=== PATIENT | female | born 1935 | race Caucasian/White ===

== ENCOUNTER 2018-04-23 07:42 | Outpatient (CLI) | payer MEDICARE, BC ==
--- NOTE | 2018-04-24 18:19 | CT Report ---
Reason: ESSENTIAL HYPERTENSION Procedure Date: 04/23/2018 Accession Number: [id number] / [id number] Procedure: CT - Head W/O CPT Code: FULL RESULT: EXAM: CT HEAD EXAM DATE: 04/23/2018 11:36 AM. CLINICAL HISTORY: ESSENTIAL HYPERTENSION. COMPARISON: None. TECHNIQUE: Multiaxial CT images were obtained from the foramen magnum to the vertex. Reformats: Sagittal and coronal. IV contrast: None. In accordance with CT protocol optimization, one or more of the following dose reduction techniques were utilized for this exam: automated exposure control, adjustment of mA and/or KV based on patient size, or use of iterative reconstructive technique. FINDINGS: Parenchyma: No intraparenchymal hemorrhage. No evidence of mass, midline shift or CT findings of acute infarction. Ayoub-white differentiation is distinct. Diffuse moderate chronic microangiopathic white matter changes are evident. Extraaxial Spaces: Normal for age. No subdural or epidural collections identified. Ventricles: The ventricles and cortical sulci are enlarged, consistent with age-related tissue loss. Sinuses: Imaged paranasal sinuses, orbits, and mastoids show no significant abnormality with incidental tiny left maxillary sinus mucus retention cyst. Bones: No evidence of fracture or calvarial defect. Other: None. IMPRESSION: Moderate senescent changes without evidence of acute intracranial abnormality. RADIA
== END 2018-04-23 07:43 | disposition home or self-care (01) ==
LOC: DI 07:42
PROVIDERS: ATTEND Family Medicine
DX: I10 Essential (primary) hypertension (principal); R41.3 Other amnesia
CPT/HCPCS: 70450

== ENCOUNTER 2020-05-07 17:47 | Outpatient (CLI) | payer MEDICARE, BC | END 2020-05-07 17:48 | disposition critical access hospital (66) | LOC: EMS 17:47 | PROVIDERS: ATTEND Emergency Medicine | DX: R41.82 Altered mental status, unspecified (principal) | CPT/HCPCS: A0425; A0429 ==

== ENCOUNTER 2020-05-07 18:13 | Inpatient (IN) | payer MEDICARE, BC ==
--- NOTE | 2020-05-07 18:37 | ED Physician Documentation ---
PD HPI ALTERED MENTAL STATUS - Stated complaint Stated Complaint: AMS - Chief complaint Chief Complaint: Neuro - History obtained from History obtained from: Patient, EMS, Caregiver - History of Present Illness Quality / character: Confused, Disoriented Contributing factors: Known dementia Basline status: Ambulatory, Independent Similar symptoms before: Has not had sx before - Additional information Additional information: Patient is an 84-year-old female with a history of dementia. Has caregivers throughout the day. Usually walks in her yard. Caregiver states that it is normal for her to be very can used, but today noted that she was misusing words and having difficulty getting the words out. She states that the speech was incoherent. Unclear when her last known normal was, potentially between 230 and 330. She was seen on a camera at about 330, she did not recognize her home, caregiver states that this is normal for the patient. Patient was found wandering on the side of the road today by police and brought here for evaluation. Review of Systems Unable to obtain: Dementia PD PAST MEDICAL HISTORY - Past Medical History Past Medical History: Yes Neuro: Dementia - Allergies Allergies/Adverse Reactions: Allergies Allergy/AdvReac Type Severity Reaction Status Date / Time No Known Drug Allergies Allergy Verified 05/07/20 18:23 PD ED PE NORMAL - Vitals Vital signs reviewed: Yes - General General: No acute distress, Well developed/nourished, Other (pleasant, not oriented to place or time.) - HEENT HEENT: Atraumatic, PERRL, Ears normal, Moist mucous membranes, Pharynx benign - Neck Neck: Supple, no meningeal sign, No bony TTP - Cardiac Cardiac: RRR - Respiratory Respiratory: No respiratory distress, Clear bilaterally - Abdomen Abdomen: Soft, Non tender, Non distended - Back Back: No spinal TTP - Derm Derm: Warm and dry, No rash - Extremities Extremities: Normal ROM s pain, No edema, No calf tenderness / cord - Neuro Neuro: manager cost 2-12 intact, No motor deficit, No sensory deficit - Psych Psych: Normal mood NIHSS - Time Time: 18:30 - Level of Consciousness Level of consciousness: (0) Alert, Keenly responsive LOC Questions: (1) Answers one Q correctly LOC Commands: (0) Performs both correctly - Gaze Best Gaze: (0) Normal - Visual Visual: (0) No loss - Facial Palsy Facial Palsy: (0) Normal, symmetrical movement - Motor Arms (both separate) Motor Arm (right): (0) No drift Motor Arm (left): (0) No drift - Motor Legs (both separate) Motor Leg (right): (0) No drift Motor Leg (left): (0) No drift - Limb Ataxia Limb Ataxia: (0) Absent - Sensory Sensory: (0) Normal - Best Language Best Language: (1) [id number] - Dysarthria Dysarthria: (0) Normal - Extinction and Inattention (formally neg Extinction and inattention: (0) No abnormality - Total Score/Results Total Score/Result: 2 Results - Vitals Vitals: Vital Signs - 24 hr 05/07/20 05/07/20 05/07/20 18:23 18:34 19:04 Temperature 36.5 C 36.5 C Heart Rate 73 73 72 Respiratory 14 14 21 Rate Blood Pressure 133/99 H 133/99 H 130/90 H O2 Saturation 99 99 100 05/07/20 05/07/20 19:30 20:00 Temperature 36.5 C Heart Rate 72 73 Respiratory 18 16 Rate Blood Pressure 140/80 H 153/71 H O2 Saturation 100 100 Oxygen O2 Source Room air - Labs Labs: Laboratory Tests 05/07/20 05/07/20 05/07/20 18:53 18:53 18:53 WBC 14.0 H RBC 4.39 Hgb 13.2 Hct 39.9 MCV 90.9 MCH 30.1 MCHC 33.1 RDW 13.9 Plt Count 341 MPV 9.1 Neut # (Auto) 11.0 H Lymph # (Auto) 2.0 Dewey # (Auto) 0.7 Eos # (Auto) 0.0 Baso # (Auto) 0.1 Absolute Nucleated RBC 0.00 Nucleated RBC % 0.0 PT 12.0 INR 1.1 APTT 25.6 Sodium 135 Potassium 3.5 Chloride 97 L Carbon Dioxide 23 Anion Gap 15.0 H BUN 15 Creatinine 0.7 Estimated GFR (MDRD) 80 L Glucose 120 H Calcium 10.0 Total Bilirubin 0.8 AST 125 H ALT 31 Alkaline Phosphatase 70 Total Creatine Kinase Troponin I High Sens Total Protein 7.3 Albumin 4.3 Globulin 3.0 Albumin/Globulin Ratio 1.4 TSH Urine Color Urine Clarity Urine pH Ur Specific [place] Urine Protein Urine Glucose (UA) Urine Ketones Urine Occult Blood Urine Nitrite Urine Bilirubin Urine Urobilinogen Ur Leukocyte Esterase Urine RBC Urine WBC Ur Squamous Epith Cells Urine Bacteria Urine Culture Comments Nasal Adenovirus (PCR) Nasal B. parapertussis DNA (PCR) Nasal Coronavir 229E PCR Nasal Coronavir HKU1 PCR Nasal Coronavir NL63 PCR Nasal Coronavir OC43 PCR Nasal Enterovir/Rhinovir PCR Nasal Influenza B PCR Nasal Influenza A PCR Nasal Parainfluen 1 PCR Nasal Parainfluen 2 PCR Nasal Parainfluen 3 PCR Nasal Parainfluen 4 PCR Nasal RSV (PCR) Nasal B.pertussis DNA PCR Nasal C.pneumoniae (PCR) Daniel Human Metapneumo PCR Nasal M.pneumoniae (PCR) Nasal SARS-CoV-2 (PCR) 05/07/20 05/07/20 05/07/20 18:53 18:53 18:53 WBC RBC Hgb Hct MCV MCH MCHC RDW Plt Count MPV Neut # (Auto) Lymph # (Auto) Dewey # (Auto) Eos # (Auto) Baso # (Auto) Absolute Nucleated RBC Nucleated RBC % PT INR APTT Sodium Potassium Chloride Carbon Dioxide Anion Gap BUN Creatinine Estimated GFR (MDRD) Glucose Calcium Total Bilirubin AST ALT Alkaline Phosphatase Total Creatine Kinase 1041 H* Troponin I High Sens 32707.0 H* Total Protein Albumin Globulin Albumin/Globulin Ratio TSH 6.88 H Urine Color Urine Clarity Urine pH Ur Specific [place] Urine Protein Urine Glucose (UA) Urine Ketones Urine Occult Blood Urine Nitrite Urine Bilirubin Urine Urobilinogen Ur Leukocyte Esterase Urine RBC Urine WBC Ur Squamous Epith Cells Urine Bacteria Urine Culture Comments Nasal Adenovirus (PCR) Nasal B. parapertussis DNA (PCR) Nasal Coronavir 229E PCR Nasal Coronavir HKU1 PCR Nasal Coronavir NL63 PCR Nasal Coronavir OC43 PCR Nasal Enterovir/Rhinovir PCR Nasal Influenza B PCR Nasal Influenza A PCR Nasal Parainfluen 1 PCR Nasal Parainfluen 2 PCR Nasal Parainfluen 3 PCR Nasal Parainfluen 4 PCR Nasal RSV (PCR) Nasal B.pertussis DNA PCR Nasal C.pneumoniae (PCR) Daniel Human Metapneumo PCR Nasal M.pneumoniae (PCR) Nasal SARS-CoV-2 (PCR) 05/07/20 05/07/20 19:18 19:28 WBC RBC Hgb Hct MCV MCH MCHC RDW Plt Count MPV Neut # (Auto) Lymph # (Auto) Dewey # (Auto) Eos # (Auto) Baso # (Auto) Absolute Nucleated RBC Nucleated RBC % PT INR APTT Sodium Potassium Chloride Carbon Dioxide Anion Gap BUN Creatinine Estimated GFR (MDRD) Glucose Calcium Total Bilirubin AST ALT Alkaline Phosphatase Total Creatine Kinase Troponin I High Sens Total Protein Albumin Globulin Albumin/Globulin Ratio TSH Urine Color YELLOW Urine Clarity CLEAR Urine pH 7.5 Ur Specific [place] 1.020 Urine Protein NEGATIVE Urine Glucose (UA) NEGATIVE Urine Ketones NEGATIVE Urine Occult Blood NEGATIVE Urine Nitrite POSITIVE H Urine Bilirubin NEGATIVE Urine Urobilinogen 0.2 (NORMAL) Ur Leukocyte Esterase SMALL H Urine RBC 0-5 Urine WBC 6-10 H Ur Squamous Epith Cells FEW Squamous Urine Bacteria Moderate H Urine Culture Comments INDICATED Nasal Adenovirus (PCR) NOT DETECTED Nasal B. parapertussis DNA (PCR) NOT DETECTED Nasal Coronavir 229E PCR NOT DETECTED Nasal Coronavir HKU1 PCR NOT DETECTED Nasal Coronavir NL63 PCR NOT DETECTED Nasal Coronavir OC43 PCR NOT DETECTED Nasal Enterovir/Rhinovir PCR NOT DETECTED Nasal Influenza B PCR NOT DETECTED Nasal Influenza A PCR NOT DETECTED Nasal Parainfluen 1 PCR NOT DETECTED Nasal Parainfluen 2 PCR NOT DETECTED Nasal Parainfluen 3 PCR NOT DETECTED Nasal Parainfluen 4 PCR NOT DETECTED Nasal RSV (PCR) NOT DETECTED Nasal B.pertussis DNA PCR NOT DETECTED Nasal C.pneumoniae (PCR) NOT DETECTED Daniel Human Metapneumo PCR NOT DETECTED Nasal M.pneumoniae (PCR) NOT DETECTED Nasal SARS-CoV-2 (PCR) NOT DETECTED - Rads (name of study) head CT Radiology: Prelim report reviewed, EMP read contemporaneously, See rad report (no acute abnormality.) PD MEDICAL DECISION MAKING - ED course Complexity details: reviewed results, re-evaluated patient, considered differential, d/w patient, d/w men's custom hair piece consultant ED course: 84-year-old female presents to the emergency department with TIA symptoms tonight. Neurological deficits fully resolved when she returned from CT scan. No acute laboratory abnormalities. Patient is well-appearing, nontoxic. Discussed the case with Dr. Rush, hospitalist who accepts. No indication for TPA. This document was made in part using voice recognition software. While efforts are made to proofread this document, sound alike and grammatical errors may occur. CT angiogram head and neck were also ordered, these will be followed up by the hospitalist. Departure - Departure Disposition: ED Place in Observation Clinical Impression: TIA (transient ischemic attack) Condition: Stable Discharge Date/Time: 05/07/20 20:57
[2020-05-07] MEDS ORDERED: IOVERSOL 320 100 ML VIAL IVP ONE ×3 (18:39→21:00)
[2020-05-07 19:00] LABS: BASOPHILS # (AUTO) 0.1 10^3/uL (0.0-0.1); BASOPHILS % (AUTO) 0.7 %; EOSINOPHILS % (AUTO) 0.3 %; HGB - HEMOGLOBIN 13.2 g/dL (12.0-16.0); LYMPHOCYTES % (AUTO) 14.5 %; MEAN CORPUSCULAR HEMOGLOBIN 30.1 pg (27.0-31.0); MEAN CORPUSCULAR HGB CONC 33.1 g/dL (32.0-36.0); MEAN CORPUSCULAR VOLUME 90.9 fL (81.0-99.0); MEAN PLATELET VOLUME 9.1 fL (7.9-10.8); MONOCYTES # (AUTO) 0.7 10^3/uL (0.0-1.0); MONOCYTES % (AUTO) 5.2 %; NEUTROPHILS % (AUTO) 78.7 %; PLT - PLATELET COUNT 341 10^3/uL (130-450); RED BLOOD COUNT 4.39 10^6/uL (4.20-5.40); RED CELL DISTRIBUTION WIDTH 13.9 % (12.0-15.0)
[2020-05-07 19:05] LABS: INR 1.1 (0.8-1.2)
--- NOTE | 2020-05-07 19:07 | CT Report ---
PROCEDURE: Head W/O Stroke Protocol INDICATIONS: word salad, confusion TECHNIQUE: Noncontrast 4.5 mm thick angled axial sections acquired from the foramen magnum to the vertex, with c oronal reformats. For radiation dose reduction, the following was used: automated exposure control, adjustment of mA and/or kV according to patient size. COMPARISON: FINDINGS: No acute intracranial hemorrhage, abnormal extra axial fluid collection, mass effect, or midline shif t. The ventricular system and basilar cisterns are patent. Ayoub-white matter differentiation is maint ained, without CT evidence of acute large territory infarct. No gross orbital abnormality. Paranasal sinuses and mastoid air cells are clear. IMPRESSION: No CT evidence of acute intracranial hemorrhage or acute infarct. Findings were discusse d with Dr. Carrington at 6:00 PM [facility] on 05/07/2020. This study fulfills neurological imaging criteria for inclusion or exclusion of acute stroke therapie s based on available published neurological imaging guidelines. Reviewed by: Lon Parsons MD on 05/07/2020 6:06 PM [facility] Approved by: Lon Parsons MD on 05/07/2020 6:06 PM [facility] Station ID: [id number]
[2020-05-07 19:12] LABS: ALBUMIN 4.3 g/dL (3.2-5.5); ALBUMIN/GLOBULIN RATIO 1.4 (1.0-2.2); BILIRUBIN,TOTAL 0.8 mg/dL (0.2-1.0); CREATININE 0.7 mg/dL (0.4-1.0); PARTIAL THROMBOPLASTIN TIME 25.6 secs (24.9-33.3); TOTAL PROTEIN 7.3 g/dL (6.7-8.2)
[2020-05-07 19:24] LABS: BILIRUBIN,URINE NEGATIVE (NEGATIVE); GLUCOSE, URINE (UA) NEGATIVE (NEGATIVE); KETONES,URINE (UA) NEGATIVE (NEGATIVE); LEUKOCYTE ESTERASE, URINE SMALL (NEGATIVE); NITRITE,URINE POSITIVE (NEGATIVE); OCCULT BLOOD,URINE NEGATIVE (NEGATIVE); PH,URINE 7.5 PH (5.0-7.5); PROTEIN,URINE NEGATIVE (NEGATIVE); UROBILINOGEN,URINE 0.2 (NORMAL) E.U./dL (NORMAL)
[2020-05-07 19:25] LABS: CLARITY,URINE CLEAR (CLEAR)
[2020-05-07 19:30] LABS: RBC,URINE 0-5 /HPF (0-5); SQUAMOUS EPITHELIAL CELL,UR FEW Squamous (<= Few)
[2020-05-07 19:31] LABS: BACTERIA,URINE Moderate /HPF (None Seen)
--- NOTE | 2020-05-07 20:08 | CT Report ---
PROCEDURE: ANGIO NECK W INDICATIONS: Signs and symptoms of stroke; word salad CONTRAST: IV CONTRAST: Optiray 320 ml: 100 PO CONTRAST: *NO PO CONTRAST TECHNIQUE: After the administration of intravenous contrast, 1.5 mm axial sections acquired from the aortic arch to the [place] of [place]. Coronal 3-D maximum intensity projection (MIP) and/or volume rendering ref ormats were then performed. For radiation dose reduction, the following was used: automated exposur e control, adjustment of mA and/or kV according to patient size. COMPARISON: None. FINDINGS: Standard three-vessel aortic arch anatomy. Atherosclerotic calcifications in the aortic arch. Soft pl aque in the arch branch vessel origins without immediately significant stenosis. The bilateral common carotid arteries are widely patent. There is atherosclerotic plaque and calcific ation at the carotid bifurcations bilaterally, right greater than left. This produces no hemodynamica lly significant narrowing, approximately 20% on the right and no greater than 10% on the left. The re mainder of the extracranial internal carotid arteries appear widely patent. There are atherosclerotic calcifications in the carotid siphons bilaterally without hematoma hematemesis significant stenosis in these carotid segments. The right vertebral artery is very mildly hypoplastic and appears to terminate in PICA, contributing very little if any flow to the basilar artery. The cervical segments of the vertebral arteries as wel l as the V4 segments appear widely patent. The basilar artery is also patent and unremarkable. IMPRESSION: No hemodynamically significant stenosis of the major extra-cranial arterial circulation. Atherosclerotic disease of the aorta extending into the arch branch vessels and at the carotid bifurc ations without flow limiting stenosis. Mildly hypoplastic right vertebral artery which appears to terminate in PICA and appears to demonstra te little or no flow contribution to the basilar artery. The estimate of stenosis included in the report of the imaging study was calculated using the NASCET method Reviewed by: Lon Parsons MD on 05/07/2020 7:07 PM [facility] Approved by: Lon Parsons MD on 05/07/2020 7:07 PM [facility] Station ID: [id number]
--- NOTE | 2020-05-07 20:20 | CT Report ---
PROCEDURE: ANGIO HEAD W/WO INDICATIONS: word salad CONTRAST: IV CONTRAST: Optiray 320 ml: 100 PO CONTRAST: *NO PO CONTRAST TECHNIQUE: Postcontrast 4.5 mm thick sections then re-acquired from the foramen magnum to the vertex. 3-dimensi onal cnkwazu-kvonuctpn-kxkcggchvi (MIP) and/or volume rendering reformats were acquired of the centra l intracranial vasculature. For radiation dose reduction, the following was used: automated exposur e control, adjustment of mA and/or kV according to patient size. COMPARISON: CT of the head without contrast today FINDINGS: Image quality: Excellent. Anterior circulation: Intracranial internal carotid arteries have atherosclerotic calcifications but are normal in size and flow. The flow within the paired anterior cerebral arteries is normal and sy mmetric. The flow within the middle cerebral arteries is normal and symmetric. The anterior communi cating artery is seen. No aneurysms are seen. Posterior circulation: The left vertebral artery is dominant. The right TEST GRADER has a origin from t he anterior circulation. The right vertebral artery is hypoplastic. Flow within the posterior cerebra l arteries is normal and symmetric. No aneurysms are seen. CSF spaces: Ventricles are normal in size and shape. Basal cisterns are patent. No extra-axial flu id collections. Brain: No midline shift. No intracranial bleeds or masses. Subcortical and periventricular hypoden sities are consistent with microvascular ischemic disease. Ayoub-white matter interface appears intact . Skull and face: Calvarium and facial bones appear intact, without suspicious lesions. Sinuses: Visualized sinuses and mastoids are clear. IMPRESSION: 1. No acute intracranial abnormality. 2. Normal CTA of the head. Reviewed by: John Witt on 05/07/2020 8:19 PM PST Approved by: John Witt on 05/07/2020 8:19 PM PST Station ID: [id number]
[2020-05-07 20:24] LABS: C. PNEUMONIAE- RESP PCR PANEL NOT DETECTED
[2020-05-07] MEDS ORDERED: SODIUM CHLORIDE FLUSH 0.9% 10 ML SYRINGE IVP PRN (20:25)
[2020-05-07] MEDS ORDERED: ACETAMINOPHEN 325 MG TABLET PO PRN (20:25)
[2020-05-07] MEDS ORDERED: ONDANSETRON 4 MG/2 ML VIAL IVP PRN (20:25)
[2020-05-07] MEDS ORDERED: ASPIRIN CHEW 81 MG TABLET PO STA (20:32)
--- NOTE | 2020-05-07 20:33 | HISTORY & PHYSICAL EXAMINATION ---
Chief Complaint - Chief Complaint Chief Complaint: Chills History of Present Illness - Admitted From Admitted From:: Home - History Obtained From Records Reviewed: Yes History obtained from: Patient, Caregiver, ER Physician, EMR Exam Limitations: Patient has advanced dementia and is a poor historian. - History of Present Illness HPI Comment/Other: This is a very pleasant 84-year-old female with a past medical history signi ficant for advanced dementia and hypertension. She was brought to the emergency department today by her caregiver after it was noted that she had slurred/garbled speech this afternoon along with diaphoresis. The history is obtained from the patient's caregiver at bedside as the patient has dementia and is unable to recall what happened. The caregiver at bedside tells me that she was with the patient today from 12:30pm to 2:30pm and she was in her usual state of health. She left the patient at that time and the patient's son noticed on the cameras he has installed at the patient's house that she walked out about a half an hour later. She did not return within 30 minutes and so neighbors and another caregiver were contacted to find the patient. [place] it was noted that she was diaphoretic and appeared quite pale. She also had slurred and garbled speech. She was also reportedly incontinent of stool. Given these symptoms, she was brought to the emergency department. Upon initial arrival to the emergency department, her speech was noted to be more of a word salad rather than slurred her speech. This was still unusual for the patient. Throughout her stay in the emergency department, her symptoms completely resolved. The patient reports no headache, change in vision, focal deficits, numbness, tingling. She only complains of vague chills and feeling cold. She does point to her upper abdomen when she complains of chills. She also complains of slight left knee pain although she does not recall any trauma. She denies any dysuria, urgency. Her caregiver did make note of increased frequency. In the emergency department, she was noted to be afebrile and hemodynamically stable. Labs were significant for a white count of 14,000. AST was elevated in the 130s. Her urinalysis did reveal pyuria, bacteriuria, leukocyte esterase, and nitrites. CT the head was unremarkable. She underwent CTA of the head and neck which showed no significant stenosis. Given the above findings, medicine was consulted for admission. I did discuss goals of care with the patient and she states that she does not want to and would like to be a full code. She also gave me permission to speak with her son regarding her CODE STATUS. I did speak with the patient's son and he states that she is a DNR and has made it clear in the past that she does not want aggressive measures. History - Past Medical History Cardiovascular: reports: Hypertension Neuro: reports: Dementia MRSA Hx?: No - Past Surgical History General: reports: Appendectomy - Family & Social History Family History Comment/Other: She reports no significant family history although she is an unreliable historian due to her dementia. Living arrangement: At home Living Situation: Alone Social History Notes: She lives at home alone. She has 2-3 caregivers who check on her each day for about 4 hours a day. She has had dementia for about the past 9 months. She is a non-smoker and does not drink alcohol. Meds/Allgy - Allergies Allergies/Adverse Reactions: Allergies Allergy/AdvReac Type Severity Reaction Status Date / Time No Known Drug Allergies Allergy Verified 05/07/20 18:23 Review of Systems - Constitutional Constitutional: reports: Chills. denies: Fatigue, Fever - Eyes Eyes: denies: Blurred vision, Vision loss - Ears, Nose & Throat Ears, Nose & Throat: denies: Nasal discharge, Nasal congestion, Sore throat - Cardiovascular Cariovascular: denies: Chest pain, Edema, Lightheadedness, Exertional dyspnea, Decr. exercise tolerance - Respiratory Respiratory: denies: Cough, SOB at rest, SOB with exertion - Gastrointestinal Gastrointestinal: denies: Abdominal pain, Constipation, Diarrhea, Nausea, Vomiting - Genitourinary Genitourinary: denies: Dysuria, Frequency, Urgency, Hematuria - Musculoskeletal Musculoskeletal: reports: Joint pain. denies: Muscle pain, Back pain, Muscle aches - Neurological Neurological: denies: General weakness, Focal weakness, Headache, Dizziness, Numbness Prior Level of Functionality: She has advanced dementia at baseline but she is ambulatory. She has 2-3 caregivers who check on her throughout the day up to 4 hours each day. Exam - Vital Signs Reviewed Vital Signs: Yes Vital Signs: Vital Signs x48h Temp Pulse Resp BP Pulse Ox 05/07/20 20:00 73 16 153/71 H 100 02/08/21 19:30 36.5 C 72 18 140/80 H 100 05/07/20 19:04 72 21 130/90 H 100 05/07/20 18:34 36.5 C 73 14 133/99 H 99 05/07/20 18:23 36.5 C 73 14 133/99 H 99 - Physical Exam General Appearance: positive: No acute distress, Alert Eyes Bilateral: positive: Normal inspection, EOMI, Conjunctivae nml ENT: positive: ENT inspection nml Neck: positive: Nml inspection Respiratory: positive: No respiratory distress. negative: Wheezes, Rales Cardiovascular: positive: Regular rate & rhythm, No murmur. negative: Tachycardia Abdomen: positive: Non-tender, No distention. negative: Tenderness, Guarding, Rebound Skin: positive: Warm, Dry Conclusion/Plan - Problem List (1) TIA (transient ischemic attack) Conclusion/Plan: Her presentation is concerning for TIA given the slurred speech/word salad. She also did reportedly have diaphoresis and nausea with this episode. At this point in time, her symptoms have resolved and her CT the head is unremarkable. Her CTA of the head and neck did not reveal any significant stenoses. We will give her aspirin 325 mg now. We will start her on aspirin 81 mg in the morning. We will look to start her on a statin this evening if her CK's are normal. Check MRI in the morning. Obtain echocardiogram. Monitor on telemetry. Check A1c and lipid panel. Given the history of diaphoresis and nausea, will check orthostatics as well to rule out any other possible etiologies of her presentation. Will also check a troponin and EKG. (2) Dementia Conclusion/Plan: She is back to her baseline at this time. She is only oriented to self and location. Her caregiver is at bedside and states this is her baseline. We will consult social work to assist with disposition planning as the patient would benefit from 20/10 caregivers. (3) Asymptomatic bacteriuria Conclusion/Plan: Although her urinalysis is suggestive of infection, the patient has no symptoms and so this is likely asymptomatic bacteriuria. We will hold off on antibiotics for the time being unless the patient develops symptoms, fever, or worsening white white count. (4) Hypertension Conclusion/Plan: Her blood pressure is currently stable in the 130s to 140 systolic. She is on hydrochlorothiazide at home. We will hold this overnight to allow for permissive hypertension in case this was a stroke. We will look to resume this tomorrow. (5) Elevated AST (SGOT) Conclusion/Plan: Her AST is elevated and otherwise her LFTs are normal. Given this elevation, will check CKs to evaluate for rhabdomyolysis. If her CKs are elevated then we will start her on IV fluids and hold statin. - Lab Results Lab results reviewed: Yes Harrison Bones: 05/07/20 18:53 05/07/20 18:53 - Diagnostic Imaging Results Diagnostic Imaging Results: positive: Final report reviewed Core Measures - Anticipated LOS I expect patient to be DC'd or transferred within 96 hours.: Yes - Issues Hospital Issues and Management Plan: 84-year-old female with advanced dementia who presents with an episode of slurred speech concerning for TIA. We will place in observation for further work-up including MRI, echo, telemetry. - DVT/VTE - Prophylaxis VTE/DVT Device ordered at admit?: Yes VTE/DVT Prophylaxis med ordered at admit?: Yes
[2020-05-07] MEDS ORDERED: LACTATED RINGERS 1,000 ML IV SCH (21:00)
[2020-05-07] MEDS ORDERED: ATORVASTATIN 10 MG TABLET PO SCH (21:00)
--- NOTE | 2020-05-07 21:06 | XRAY Report ---
PROCEDURE: Knee 2 View LT INDICATIONS: Knee pain and tenderness. TECHNIQUE: 2 views of the left knee(s) were acquired. COMPARISON: None. FINDINGS: Bones: There is medial joint space narrowing and tricompartmental osteophytes consistent with osteoar thritis. Calcifications in the lateral joint space are consistent with under calcinosis. Soft tissues: No joint effusion. No suspicious soft tissue calcifications. Vasculature has atheros clerotic calcifications. IMPRESSION: 1. Tricompartmental degenerative changes and medial joint space narrowing consistent with osteoarthri tis. 2. Chondrocalcinosis. Reviewed by: John Witt on 05/07/2020 9:04 PM PST Approved by: John Witt on 05/07/2020 9:04 PM PST Station ID: [id number]
[2020-05-07] MEDS ORDERED: CLOPIDOGREL 300 MG TABLET PO ONE (21:59)
[2020-05-07] MEDS ORDERED: HEPARIN 25000UNITS/500ML (D5W) 25,000 UNIT/500 ML BAG IV SCH (22:00)
--- NOTE | 2020-05-07 22:19 | ADVANCE CARE PLANNING NOTE ---
Advance Care Planning - Planning Encounter Date: 05/07/20 Time: 21:15 Purpose: To clarify goals of care. Parties in Attendance: The patient's son and POAMauri. One of the patient's caregivers, Divine. Decisional Capacity of the Patient: She has advanced dementia and is not able to make her own medical decisions. Her POA is her son, Mauri. - Diagnosis for Encounter (1) NSTEMI (non-ST elevated myocardial infarction) Summary: She presented with slurred speech/word salad and concerns for TIA. Work-up then revealed an elevated CK as well as an elevated troponin of 12,000. This was concerning for an NSTEMI given her presentation also included nausea and diaphoresis. Her EKG does reveal sinus rhythm with T wave inversions and slight ST depressions in V4 to V6. She has been given aspirin, Plavix and started on a heparin drip. (2) Dementia Summary: The patient has had dementia for the past 9 months with progressive decline. She is normally oriented to self and location at baseline. She will also know her son and some of her other for members. She does not know the name of her caregiver but will recognize her by face. - Encounter Subjective/Patient's Story: This is obtained from the patient's son and caregiver as the patient has dementia and is unable to provide a history. They state that the patient has been living alone now for about 30 years. She has been independent up until today from a physical standpoint. She ambulates on her own without any use of a walker or cane. She has not been driving for the past year and has had a cognitive decline over the past 9 months consistent with dementia. They states that she has her good days and bad days but for the most part, she is pleasantly confused at baseline. She does have 2-3 caregivers throughout the day but they do not stay longer for more than 4 hours at most. The patient prefers to be at home alone and has on occasion asked the caregivers to leave early. Mauri tells me that they did consider assisted living at the end of February but given the concerns for Covid and that she would be locked up in her tiny little space that she would become depressed and would not do well overall. He is now open to the idea of 24/7 caregivers or even memory care. His concern in the past has been that his mother has declined caregivers and that she would prefer to stay home as this is where she has lived for the past 30 years. She will go out for walks on her own at times but she returns home. He does have cameras installed around her house that he is aware whenever she leaves. Objective/Medical Story: She now presents with slurred speech/word salad after an episode of nausea and diaphoresis this afternoon. Initial concern was for TIA. CT the head was unremarkable as well as a CTA of the head and neck. Given her elevated AST with otherwise normal LFTs, a CK was checked which was elevated at 1000. Given there was no history concerning for rhabdomyolysis, concern was for possible cardiac event and so troponin was checked this was elevated at greater than 12,000. She was initially placed in observation for TIA but has not been made inpatient for NSTEMI. She has been given aspirin and we will start her on anticoagulation and Plavix as well as a beta-anthony. We will obtain echocardiogram tomorrow. Goals of Care: Mauri has made clear that the patient has stated in the past that she wishes to be DNR and that she does not want aggressive measures. He feels that she would not want to be transferred to higher level of care. Plan: The plan going forward is to continue with medical management here at our facility. She has already been given aspirin. Anthony give her Plavix and start her on a heparin drip. We will obtain echocardiogram tomorrow. At this time, Mauri feels that the patient would not want to be transferred as she is a DNR and has stated in the past that she does not want aggressive measures. He also states that she prefers to avoid hospitalizations and does not think she would want to be transferred after just being admitted here. If there is any change in her clinical status, Mauri would reconsider transfer at that point in time. We will observe her overnight and trend her troponins and monitor her on telemetry. She has been made a DNR. We will consult social work to assist with disposition as Mauri is now open to 24/7 caregivers or even the possibility of a memory care unit. Additional Discussion: We discussed the diagnosis of NSTEMI and the different treatment options including more aggressive options such as angiogram and potential stent placement. We also discussed medical management alone which includes aspirin, Plavix, anticoagulation, and beta-blockers. We also discussed what entails of CPR and the likely poor prognosis given the patient's advanced age. Code Status: Do Not Attempt Resuscitation Time spent on advance care plannin
[2020-05-07] MEDS: METOPROLOL TARTRATE 25 MG TABLET PO SCH (22:35)
[2020-05-08] MEDS: SODIUM CHLORIDE FLUSH 0.9% 10 ML SYRINGE IVP SCH ×3 (00:27→17:16)
[2020-05-08 04:42] LABS: BASOPHILS # (AUTO) 0.1 10^3/uL (0.0-0.1); BASOPHILS % (AUTO) 0.8 %; EOSINOPHILS # (AUTO) 0.1 10^3/uL (0.0-0.7); EOSINOPHILS % (AUTO) 0.9 %; HGB - HEMOGLOBIN 12.1 g/dL (12.0-16.0); LYMPHOCYTES # (AUTO) 3.3 10^3/uL (1.5-3.5); LYMPHOCYTES % (AUTO) 30.9 %; MEAN CORPUSCULAR HGB CONC 33.3 g/dL (32.0-36.0); MEAN CORPUSCULAR VOLUME 89.9 fL (81.0-99.0); MONOCYTES # (AUTO) 0.8 10^3/uL (0.0-1.0); MONOCYTES % (AUTO) 7.5 %; NEUTROPHILS # (AUTO) 6.3 10^3/uL (1.5-6.6); NEUTROPHILS % (AUTO) 59.6 %; PLT - PLATELET COUNT 311 10^3/uL (130-450); RED BLOOD COUNT 4.04 10^6/uL (4.20-5.40); RED CELL DISTRIBUTION WIDTH 13.9 % (12.0-15.0); WHITE BLOOD COUNT 10.6 x10^3/uL (4.8-10.8)
[2020-05-08 05:00] LABS: BUN - BLOOD UREA NITROGEN 12 mg/dL (6-20); CARBON DIOXIDE - CO2 24 mmol/L (21-32); CHLORIDE 100 mmol/L (101-111); CHOL/HDL RATIO 4.4 (<4.4); CHOLESTEROL 241 mg/dL; CREATININE 0.7 mg/dL (0.4-1.0); GLUCOSE 100 mg/dL (70-100); HDL CHOLESTEROL 55 mg/dL; LDL CHOLESTEROL,CALCULATED 164 mg/dL; MAGNESIUM 2.2 mg/dL (1.7-2.8); VLDL CHOLESTEROL 22 mg/dL
[2020-05-08] MEDS ORDERED: POTASSIUM CHLORIDE 20 MEQ TABLET PO ONE (06:56)
--- NOTE | 2020-05-08 07:11 | PROVIDER PROGRESS NOTE ---
Assessment/Plan - Problem List (1) NSTEMI (non-ST elevated myocardial infarction) Assessment/Plan: Repeat troponin this morning was 37,000. We will continue to trend times tomorrow EKG done yesterday showed slight ST depressions in V4 to V6. Those T wave inversions and the inferior leads as well as V3 through V6. The findings were discussed by my colleague Dr. Rush with the patient's son by name Mauri. He is also the patient's power of collections attorney. He expressed that the patient is DNR and in the past she had not wanted any aggressive measures. He feels his mother would not want to be transferred for further work-up or treatment to include angiogram and or possible stent placement. He was agreeable to medical management/treatment here at [facility]. Patient is completely chest pain-free currently. Patient was given Plavix 300 mg once yesterday We will continue Plavix 75 mg p.o. daily Aspirin 81 mg p.o. daily Metoprolol tartrate 25 mg p.o. twice daily Patient is on a heparin drip currently. Atorvastatin 10 mg p.o. every afternoon 2D echocardiogram is pending (2) TIA (transient ischemic attack) Assessment/Plan: Currently has no symptomsMRI of the brain showed volume loss and small vessel ischemic disease but no definite night acute process. 2D echocardiogram pending. Patient is on Plavix 75 mg daily, aspirin 31mg daily and atorvastatin 10mg qhs (3) Hypertension Assessment/Plan: On metoprolol tartrate 25 mg p.o. twice daily. (4) Dementia Assessment/Plan: At baseline. Patient is not on any medications. Social work consulted to assist with disposition planning. The patient could benefit from 20/10 caregivers. - Current Meds Current Meds: Current Medications Generic Name Dose Route Start Last Admin Trade Name Freq PRN Reason Stop Dose Admin Heparin Sodium/Dextrose 25,000 unit in 500 mls @ 15 mls/hr 05/07/20 22:00 05/07/20 22:25 IV 14.8 mls/hr .[id number] LORAINE Administration Protocol Metoprolol Tartrate 25 mg 05/07/20 22:00 05/07/20 22:35 Metoprolol Tartrate 25 Mg Tablet PO 25 mg BID LORAINE Administration Sodium Chloride 10 ml 05/08/20 01:00 05/08/20 00:27 Sodium Chloride Flush 0.9% 10 Ml Syringe IVP Not Given 0100,0900,1700 LORAINE - Lab Result Fish Bone Diagrams: 05/08/20 04:37 05/08/20 04:37 Subjective - Subjective Patient Reports: Other (Patient was awake alert and appeared comfortable at time of exam. She denied any complaints. No chest pain, dyspnea, abdominal pain, fever or chills.) Objective Vital Signs: Vital Signs - 24 hr 05/07/20 05/07/20 05/07/20 18:23 18:34 19:04 Temperature 36.5 C 36.5 C Heart Rate 73 73 72 Heart Rate [ Brachial] Respiratory 14 14 21 Rate Blood Pressure 133/99 H 133/99 H 130/90 H Blood Pressure [Right Brachial artery] O2 Saturation 99 99 100 05/07/20 05/07/20 05/07/20 19:30 20:00 20:30 Temperature 36.5 C 36.5 C Heart Rate 72 73 72 Heart Rate [ Brachial] Respiratory 18 16 16 Rate Blood Pressure 140/80 H 153/71 H 150/70 H Blood Pressure [Right Brachial artery] O2 Saturation 100 100 100 05/07/20 05/07/20 05/08/20 21:15 22:35 01:00 Temperature 37.1 C 37 C Heart Rate Heart Rate [ 70 69 Brachial] Respiratory 18 18 Rate Blood Pressure 133/68 H Blood Pressure 115/72 98/75 [Right Brachial artery] O2 Saturation 100 97 05/08/20 05:41 Temperature 37.0 C Heart Rate Heart Rate [ Brachial] Respiratory 17 Rate Blood Pressure Blood Pressure 111/55 L [Right Brachial artery] O2 Saturation 96 Oxygen O2 Source Room air General: Alert, Oriented x3, Cooperative, No acute distress HEENT: Atraumatic, PERRLA, EOMI Neck: Supple, No JVD Neuro: Alert, Focal Deficits Cardiovascular: Regular rate, Normal S1, Normal S2, No murmurs Respiratory: Chest non-tender, No respiratory distress, Breath sounds nml Abdomen: Normal bowel sounds, Soft Extremities: No clubbing, No cyanosis, No edema - Results Results: Laboratory Results WBC 10.6 x10^3/uL (4.8-10.8) 05/08/20 04:37 RBC 4.04 10^6/uL (4.20-5.40) L 05/08/20 04:37 Hgb 12.1 g/dL (12.0-16.0) 05/08/20 04:37 Hct 36.3 % (37.0-47.0) L 05/08/20 04:37 MCV 89.9 fL (81.0-99.0) 05/08/20 04:37 MCH 30.0 pg (27.0-31.0) 05/08/20 04:37 MCHC 33.3 g/dL (32.0-36.0) 05/08/20 04:37 RDW 13.9 % (12.0-15.0) 05/08/20 04:37 Plt Count 311 10^3/uL (130-450) 05/08/20 04:37 MPV 9.0 fL (7.9-10.8) 05/08/20 04:37 Neut # (Auto) 6.3 10^3/uL (1.5-6.6) 05/08/20 04:37 Lymph # (Auto) 3.3 10^3/uL (1.5-3.5) 05/08/20 04:37 [place] # (Auto) 0.8 10^3/uL (0.0-1.0) 05/08/20 04:37 Eos # (Auto) 0.1 10^3/uL (0.0-0.7) 05/08/20 04:37 Baso # (Auto) 0.1 10^3/uL (0.0-0.1) 05/08/20 04:37 Absolute Nucleated RBC 0.00 x10^3/uL 05/08/20 04:37 Nucleated RBC % 0.0 /100WBC 05/08/20 04:37 PT 12.0 secs (9.9-12.6) 05/07/20 18:53 INR 1.1 (0.8-1.2) 05/07/20 18:53 APTT 25.6 secs (24.9-33.3) 05/07/20 18:53 Anti-Xa Level 0.5 U/mL (-0.7) 05/08/20 04:37 Sodium 133 mmol/L (135-145) L 05/08/20 04:37 Potassium 3.4 mmol/L (3.5-5.0) L 05/08/20 04:37 Chloride 100 mmol/L (101-111) L 05/08/20 04:37 Carbon Dioxide 24 mmol/L (21-32) 05/08/20 04:37 Anion Gap 9.0 (6-13) 05/08/20 04:37 BUN 12 mg/dL (6-20) 05/08/20 04:37 Creatinine 0.7 mg/dL (0.4-1.0) 05/08/20 04:37 Estimated GFR (MDRD) 80 (>89) L 05/08/20 04:37 Glucose 100 mg/dL (70-100) 05/08/20 04:37 Calcium 9.0 mg/dL (8.5-10.3) 05/08/20 04:37 Magnesium 2.2 mg/dL (1.7-2.8) 05/08/20 04:37 Total Bilirubin 0.8 mg/dL (0.2-1.0) 05/07/20 18:53 AST 125 IU/L (10-42) H 05/07/20 18:53 ALT 31 IU/L (10-60) 05/07/20 18:53 Alkaline Phosphatase 70 IU/L (42-121) 05/07/20 18:53 Total Creatine Kinase 1041 IU/L (22-269) H* 05/07/20 18:53 Troponin I High Sens 64305.9 ng/L (2.3-14.8) H* 05/08/20 04:37 Total Protein 7.3 g/dL (6.7-8.2) 05/07/20 18:53 Albumin 4.3 g/dL (3.2-5.5) 05/07/20 18:53 Globulin 3.0 g/dL (2.1-4.2) 05/07/20 18:53 Albumin/Globulin Ratio 1.4 (1.0-2.2) 05/07/20 18:53 Triglycerides 111 mg/dL (-149) 05/08/20 04:37 Cholesterol 241 mg/dL (-199) H 05/08/20 04:37 LDL Cholesterol, Calc 164 mg/dL (-129) H 05/08/20 04:37 VLDL Cholesterol 22 mg/dL 05/08/20 04:37 HDL Cholesterol 55 mg/dL (60-) L 05/08/20 04:37 LDL/HDL Ratio 3.0 (<4.4) 05/08/20 04:37 Cholesterol/HDL Ratio 4.4 (<4.4) 05/08/20 04:37 TSH 6.88 uIU/mL (0.34-5.60) H 05/07/20 18:53 Free T4 0.78 ng/dL (0.58-1.64) 05/08/20 04:37 Urine Color YELLOW 05/07/20 19:18 Urine Clarity CLEAR (CLEAR) 05/07/20 19:18 Urine pH 7.5 PH (5.0-7.5) 05/07/20 19:18 Ur Specific [place] 1.020 (1.002-1.030) 05/07/20 19:18 Urine Protein NEGATIVE mg/dL (NEGATIVE) 05/07/20 19:18 Urine Glucose (UA) NEGATIVE mg/dL (NEGATIVE) 05/07/20 19:18 Urine Ketones NEGATIVE mg/dL (NEGATIVE) 05/07/20 19:18 Urine Occult Blood NEGATIVE (NEGATIVE) 05/07/20 19:18 Urine Nitrite POSITIVE (NEGATIVE) H 05/07/20 19:18 Urine Bilirubin NEGATIVE (NEGATIVE) 05/07/20 19:18 Urine Urobilinogen 0.2 (NORMAL) E.U./dL (NORMAL) 05/07/20 19:18 Ur Leukocyte Esterase SMALL (NEGATIVE) H 05/07/20 19:18 Urine RBC 0-5 /HPF (0-5) 05/07/20 19:18 Urine WBC 6-10 /HPF (0-5) H 05/07/20 19:18 Ur Squamous Epith Cells FEW Squamous (<= Few) 05/07/20 19:18 Urine Bacteria Moderate /HPF (None Seen) H 05/07/20 19:18 Urine Culture Comments INDICATED 05/07/20 19:18 Nasal Adenovirus (PCR) NOT DETECTED 05/07/20 19:28 Nasal B. parapertussis DNA (PCR) NOT DETECTED 05/07/20 19:28 Nasal Coronavir 229E PCR NOT DETECTED 05/07/20 19:28 Nasal Coronavir HKU1 PCR NOT DETECTED 05/07/20 19:28 Nasal Coronavir NL63 PCR NOT DETECTED 02/08/21 19:28 Nasal Coronavir OC43 PCR NOT DETECTED 05/07/20 19:28 Nasal Enterovir/Rhinovir PCR NOT DETECTED 05/07/20 19:28 Nasal Influenza B PCR NOT DETECTED 05/07/20 19:28 Nasal Influenza A PCR NOT DETECTED 05/07/20 19:28 Nasal Parainfluen 1 PCR NOT DETECTED 05/07/20 19:28 Nasal Parainfluen 2 PCR NOT DETECTED 05/07/20 19:28 Nasal Parainfluen 3 PCR NOT DETECTED 05/07/20 19:28 Nasal Parainfluen 4 PCR NOT DETECTED 05/07/20 19:28 Nasal RSV (PCR) NOT DETECTED 05/07/20 19:28 Nasal B.pertussis DNA PCR NOT DETECTED 05/07/20 19:28 Nasal C.pneumoniae (PCR) NOT DETECTED 05/07/20 19:28 Daniel Human Metapneumo PCR NOT DETECTED 05/07/20 19:28 Nasal M.pneumoniae (PCR) NOT DETECTED 05/07/20 19:28 Nasal SARS-CoV-2 (PCR) NOT DETECTED 05/07/20 19:28 ABX Reporting Has patient been on IV antibiotics over the past 48 hours?: No
[2020-05-08] MEDS: METOPROLOL TARTRATE 25 MG TABLET PO SCH ×2 (08:35→20:23)
[2020-05-08] MEDS: ASPIRIN CHEW 81 MG TABLET PO SCH (08:35)
[2020-05-08] MEDS: CLOPIDOGREL 75 MG TABLET PO SCH (08:35)
[2020-05-08] MEDS ORDERED: ENOXAPARIN 40 MG/0.4 ML SYRINGE SUBQ SCH (09:00)
--- NOTE | 2020-05-08 10:38 | MRI Report ---
PROCEDURE: Brain W/O INDICATIONS: TIA. Neuro deficit. TECHNIQUE: Noncontrast sagittal FLAIR imaging of the brain was performed. Patient refused further imaging. COMPARISON: None. FINDINGS: Image quality: Excellent. Moderate diffuse cerebral volume loss is present. There is a mild to moderate degree of patchy high F LAIR signal within the periventricular and subcortical white matter of the cerebral hemispheres. Orbi ts and sinuses are grossly unremarkable. No definite intracranial hemorrhage. IMPRESSION: Limited examination demonstrating volume loss and small vessel ischemic disease. No defi nite acute process. Reviewed by: Keyana Thomason MD on 05/08/2020 10:37 AM [facility] Approved by: Keyana Thomason MD on 05/08/2020 10:37 AM [facility] Station ID: [id number]
[2020-05-08 12:21] LABS: HEMOGLOBIN A1c% 5.6 % (4.27-6.07)
--- NOTE | 2020-05-08 14:48 | PHARMACY PROGRESS NOTE ---
- Best Possible Medication History Admit Date and Time: 05/07/20 8893 Processed by: Pharmacy Medication History completed: Yes Patient Interview: Completed Secondary Source(s): Other family member (SON), Pharmacy records, Insurance records Medication list updated by myself on 05/08 following interview with patient and her son. Patient was unable to recall what medications she takes, but her son was able to provide names and doses of her current medications, which matched insurance and fill records. Per the son, patient's simvastatin was discontinued by her PCP 2 weeks ago after reassessing need for medication based on her age. As the person ultimately responsible for medication therapy, providers are able to order a medication from an existing home medication list in [facility] via the "Reconcile Routine" prior to Confirmation of that medication by rn support services. Such practice is discouraged except when the physician, in their clinical judgment, deems that a medical need exists for a medication without regard to previous use.
[2020-05-08] MEDS ORDERED: ATORVASTATIN 40 MG TABLET PO SCH (21:00)
[2020-05-08] MEDS ORDERED: traZODone 50 MG TABLET PO SCH (21:00)
[2020-05-08] MEDS ORDERED: QUEtiapine 25 MG TABLET PO SCH (21:45)
[2020-05-09] MEDS ORDERED: LORazepam 2 MG/ML VIAL IVP ONE (00:19)
[2020-05-09] MEDS: SODIUM CHLORIDE FLUSH 0.9% 10 ML SYRINGE IVP SCH ×2 (00:47→12:37)
[2020-05-09] MEDS: LORazepam 2 MG/ML VIAL IVP PRN ×2 (02:35→04:42)
[2020-05-09 04:41] LABS: BASOPHILS # (AUTO) 0.1 10^3/uL (0.0-0.1); BASOPHILS % (AUTO) 0.8 %; CALCIUM 9.8 mg/dL (8.5-10.3); CREATININE 0.8 mg/dL (0.4-1.0); EOSINOPHILS # (AUTO) 0.1 10^3/uL (0.0-0.7); EOSINOPHILS % (AUTO) 1.2 %; HGB - HEMOGLOBIN 12.6 g/dL (12.0-16.0); LYMPHOCYTES # (AUTO) 3.5 10^3/uL (1.5-3.5); LYMPHOCYTES % (AUTO) 32.1 %; MAGNESIUM 2.2 mg/dL (1.7-2.8); MEAN CORPUSCULAR HEMOGLOBIN 29.9 pg (27.0-31.0); MEAN CORPUSCULAR HGB CONC 32.7 g/dL (32.0-36.0); MEAN CORPUSCULAR VOLUME 91.2 fL (81.0-99.0); MEAN PLATELET VOLUME 9.4 fL (7.9-10.8); MONOCYTES # (AUTO) 0.9 10^3/uL (0.0-1.0); MONOCYTES % (AUTO) 8.7 %; NEUTROPHILS # (AUTO) 6.1 10^3/uL (1.5-6.6); NEUTROPHILS % (AUTO) 56.9 %; PLT - PLATELET COUNT 342 10^3/uL (130-450); RED BLOOD COUNT 4.22 10^6/uL (4.20-5.40); RED CELL DISTRIBUTION WIDTH 14.3 % (12.0-15.0); WHITE BLOOD COUNT 10.8 x10^3/uL (4.8-10.8)
--- NOTE | 2020-05-09 07:34 | PROVIDER PROGRESS NOTE ---
Assessment/Plan - Current Meds Current Meds: Current Medications Generic Name Dose Route Start Last Admin Trade Name Freq PRN Reason Stop Dose Admin Aspirin 81 mg 05/08/20 09:00 05/08/20 08:35 Aspirin Chew 81 Mg Tablet PO 81 mg DAILY LORAINE Administration Atorvastatin Calcium 80 mg 05/08/20 21:00 05/08/20 20:23 Atorvastatin 40 Mg Tablet PO 80 mg QPM LORAINE Administration Clopidogrel Bisulfate 75 mg 05/08/20 09:00 05/08/20 08:35 Clopidogrel 75 Mg Tablet PO 75 mg DAILY LORAINE Administration Lorazepam 0.5 mg 05/09/20 00:53 05/09/20 04:42 Lorazepam 2 Mg/Ml Vial IVP 0.5 mg Q2H PRN Administration Agitation Quetiapine Fumarate 25 mg 05/08/20 21:45 05/08/20 21:59 Quetiapine 25 Mg Tablet PO 25 mg QPM LORAINE Administration Sodium Chloride 10 ml 05/07/20 20:25 05/09/20 02:36 Sodium Chloride Flush 0.9% 10 Ml Syringe IVP 20 ml PRN PRN Administration NEEDED PER PROVIDER ORDERS Sodium Chloride 10 ml 05/08/20 01:00 05/09/20 00:47 Sodium Chloride Flush 0.9% 10 Ml Syringe IVP 10 ml 0100,0900,1700 LORAINE Administration Trazodone HCl 50 mg 05/08/20 21:00 05/08/20 20:23 Trazodone 50 Mg Tablet PO 50 mg QPM LORAINE Administration - Lab Result Fish Bone Diagrams: 05/09/20 04:15 05/09/20 04:15 - Additional Planning My Orders: My Active Orders 05/08/20 21:00 Atorvastatin [Lipitor] 80 mg PO QPM traZODone [Desyrel] 50 mg PO QPM 05/09/20 09:00 Metoprolol Succinate [Toprol Xl] 25 mg PO DAILY Objective Vital Signs: Vital Signs - 24 hr 05/08/20 05/08/20 05/08/20 08:15 11:35 20:21 Temperature 36.6 C 36.7 C Heart Rate [ 66 62 84 Brachial] Respiratory 16 16 18 Rate Blood Pressure Blood Pressure 115/58 L 131/61 H 128/69 [Left Brachial artery] O2 Saturation 99 100 05/08/20 05/08/20 05/09/20 20:23 23:36 04:53 Temperature 36.7 C 36.7 C Heart Rate [ 85 83 Brachial] Respiratory 18 20 Rate Blood Pressure 128/69 Blood Pressure 144/71 H 147/68 H [Left Brachial artery] O2 Saturation 96 98 Oxygen O2 Source Room air I&O (Last 24 Hrs): Intake and Output Totals x24h 05/07/20 05/08/20 05/09/20 23:59 23:59 23:59 Intake Total 1406 250 Balance 1406 250 - Results Results: Laboratory Results WBC 10.8 x10^3/uL (4.8-10.8) 05/09/20 04:15 RBC 4.22 10^6/uL (4.20-5.40) 05/09/20 04:15 Hgb 12.6 g/dL (12.0-16.0) 05/09/20 04:15 Hct 38.5 % (37.0-47.0) 05/09/20 04:15 MCV 91.2 fL (81.0-99.0) 05/09/20 04:15 MCH 29.9 pg (27.0-31.0) 05/09/20 04:15 MCHC 32.7 g/dL (32.0-36.0) 05/09/20 04:15 RDW 14.3 % (12.0-15.0) 05/09/20 04:15 Plt Count 342 10^3/uL (130-450) 05/09/20 04:15 MPV 9.4 fL (7.9-10.8) 05/09/20 04:15 Neut # (Auto) 6.1 10^3/uL (1.5-6.6) 05/09/20 04:15 Lymph # (Auto) 3.5 10^3/uL (1.5-3.5) 05/09/20 04:15 [place] # (Auto) 0.9 10^3/uL (0.0-1.0) 05/09/20 04:15 Eos # (Auto) 0.1 10^3/uL (0.0-0.7) 05/09/20 04:15 Baso # (Auto) 0.1 10^3/uL (0.0-0.1) 05/09/20 04:15 Absolute Nucleated RBC 0.00 x10^3/uL 05/09/20 04:15 Nucleated RBC % 0.0 /100WBC 05/09/20 04:15 PT 12.0 secs (9.9-12.6) 05/07/20 18:53 INR 1.1 (0.8-1.2) 05/07/20 18:53 APTT 25.6 secs (24.9-33.3) 05/07/20 18:53 Anti-Xa Level 0.1 U/mL (-0.7) 05/08/20 17:40 Sodium 139 mmol/L (135-145) 05/09/20 04:15 Potassium 3.5 mmol/L (3.5-5.0) 05/09/20 04:15 Chloride 100 mmol/L (101-111) L 05/09/20 04:15 Carbon Dioxide 25 mmol/L (21-32) 05/09/20 04:15 Anion Gap 14.0 (6-13) H 05/09/20 04:15 BUN 11 mg/dL (6-20) 05/09/20 04:15 Creatinine 0.8 mg/dL (0.4-1.0) 05/09/20 04:15 Estimated GFR (MDRD) 69 (>89) L 05/09/20 04:15 Glucose 118 mg/dL (70-100) H 05/09/20 04:15 Estimat Average Glucose 114 mg/dL (70-100) H 05/08/20 04:37 Hemoglobin A1c % 5.6 % (4.27-6.07) 05/08/20 04:37 Calcium 9.8 mg/dL (8.5-10.3) 05/09/20 04:15 Magnesium 2.2 mg/dL (1.7-2.8) 05/09/20 04:15 Total Bilirubin 0.8 mg/dL (0.2-1.0) 05/07/20 18:53 AST 125 IU/L (10-42) H 05/07/20 18:53 ALT 31 IU/L (10-60) 05/07/20 18:53 Alkaline Phosphatase 70 IU/L (42-121) 05/07/20 18:53 Total Creatine Kinase 1186 IU/L (22-269) H* 05/08/20 04:37 Troponin I High Sens 22770.9 ng/L (2.3-14.8) H* 05/08/20 17:40 Total Protein 7.3 g/dL (6.7-8.2) 05/07/20 18:53 Albumin 4.3 g/dL (3.2-5.5) 05/07/20 18:53 Globulin 3.0 g/dL (2.1-4.2) 05/07/20 18:53 Albumin/Globulin Ratio 1.4 (1.0-2.2) 05/07/20 18:53 Triglycerides 111 mg/dL (-149) 05/08/20 04:37 Cholesterol 241 mg/dL (-199) H 05/08/20 04:37 LDL Cholesterol, Calc 164 mg/dL (-129) H 05/08/20 04:37 VLDL Cholesterol 22 mg/dL 05/08/20 04:37 HDL Cholesterol 55 mg/dL (60-) L 05/08/20 04:37 LDL/HDL Ratio 3.0 (<4.4) 05/08/20 04:37 Cholesterol/HDL Ratio 4.4 (<4.4) 05/08/20 04:37 Vitamin B12 496 pg/mL (180-914) 05/09/20 04:15 TSH 6.88 uIU/mL (0.34-5.60) H 05/07/20 18:53 Free T4 0.78 ng/dL (0.58-1.64) 05/08/20 04:37 Urine Color YELLOW 05/07/20 19:18 Urine Clarity CLEAR (CLEAR) 05/07/20 19:18 Urine pH 7.5 PH (5.0-7.5) 05/07/20 19:18 Ur Specific [place] 1.020 (1.002-1.030) 05/07/20 19:18 Urine Protein NEGATIVE mg/dL (NEGATIVE) 05/07/20 19:18 Urine Glucose (UA) NEGATIVE mg/dL (NEGATIVE) 05/07/20 19:18 Urine Ketones NEGATIVE mg/dL (NEGATIVE) 05/07/20 19:18 Urine Occult Blood NEGATIVE (NEGATIVE) 05/07/20 19:18 Urine Nitrite POSITIVE (NEGATIVE) H 05/07/20 19:18 Urine Bilirubin NEGATIVE (NEGATIVE) 05/07/20 19:18 Urine Urobilinogen 0.2 (NORMAL) E.U./dL (NORMAL) 05/07/20 19:18 Ur Leukocyte Esterase SMALL (NEGATIVE) H 05/07/20 19:18 Urine RBC 0-5 /HPF (0-5) 05/07/20 19:18 Urine WBC 6-10 /HPF (0-5) H 05/07/20 19:18 Ur Squamous Epith Cells FEW Squamous (<= Few) 05/07/20 19:18 Urine Bacteria Moderate /HPF (None Seen) H 05/07/20 19:18 Urine Culture Comments INDICATED 05/07/20 19:18 Nasal Adenovirus (PCR) NOT DETECTED 05/07/20 19:28 Nasal B. parapertussis DNA (PCR) NOT DETECTED 05/07/20 19:28 Nasal Coronavir 229E PCR NOT DETECTED 05/07/20 19:28 Nasal Coronavir HKU1 PCR NOT DETECTED 05/07/20 19:28 Nasal Coronavir NL63 PCR NOT DETECTED 05/07/20 19:28 Nasal Coronavir OC43 PCR NOT DETECTED 05/07/20 19:28 Nasal Enterovir/Rhinovir PCR NOT DETECTED 05/07/20 19:28 Nasal Influenza B PCR NOT DETECTED 05/07/20 19:28 Nasal Influenza A PCR NOT DETECTED 05/07/20 19:28 Nasal Parainfluen 1 PCR NOT DETECTED 05/07/20 19:28 Nasal Parainfluen 2 PCR NOT DETECTED 05/07/20 19:28 Nasal Parainfluen 3 PCR NOT DETECTED 05/07/20 19:28 Nasal Parainfluen 4 PCR NOT DETECTED 05/07/20 19:28 Nasal RSV (PCR) NOT DETECTED 05/07/20 19:28 Nasal B.pertussis DNA PCR NOT DETECTED 05/07/20 19:28 Nasal C.pneumoniae (PCR) NOT DETECTED 05/07/20 19:28 Daniel Human Metapneumo PCR NOT DETECTED 05/07/20 19:28 Nasal M.pneumoniae (PCR) NOT DETECTED 05/07/20 19:28 Nasal SARS-CoV-2 (PCR) NOT DETECTED 05/07/20 19:28
[2020-05-09] MEDS ORDERED: METOPROLOL SUCCINATE 25 MG TABLET PO SCH (09:00)
[2020-05-09] MEDS ORDERED: MULTIVITAMIN TABLET PO SCH (09:00)
[2020-05-09] MEDS: ASPIRIN CHEW 81 MG TABLET PO SCH (12:35)
[2020-05-09] MEDS: CLOPIDOGREL 75 MG TABLET PO SCH (12:36)
[2020-05-09 12:40] VITALS: BP 130/64
--- NOTE | 2020-05-09 13:58 | DISCHARGE SUMMARY ---
"Discharge Summary Admit Date: 05/07/20 Discharge Date: 05/09/20 Discharging Provider: Holly Sanchez Primary Care Provider: Jami Saenz Condition at Discharge: Stable Discharge Disposition: 01 Home, Self Care - DIAGNOSES Admission Diagnoses: NSTEMI TIA Dementia Asymptomatic bacteriuria Hypertension Elevated AST Discharge Diagnoses with Status of Each Condition: NSTEMI: Improved. Medical management TIA: Resolved Dementia: Severe. Chronic Asymptomatic bacteriuria: No treatment Hypertension: Chronic Elevated AST: Resolved - HPI History of Present Illness: Per HPI: This is a very pleasant 84-year-old female with a past medical history significant for advanced dementia and hypertension. She was brought to the emergency department today by her caregiver after it was noted that she had slurred/garbled speech this afternoon along with diaphoresis. The history is obtained from the patient's caregiver at bedside as the patient has dementia and is unable to recall what happened. The caregiver at bedside tells me that she was with the patient today from 12:30pm to 2:30pm and she was in her usual state of health. She left the patient at that time and the patient's son noticed on the cameras he has installed at the patient's house that she walked out about a half an hour later. She did not return within 30 minutes and so neighbors and another caregiver were contacted to find the patient. [place] was noted that she was diaphoretic and appeared quite pale. She also had slurred and garbled speech. She was also reportedly incontinent of stool. Given these symptoms, she was brought to the emergency department. Upon initial arrival to the emergency department, her speech was noted to be more of a word salad rather than slurred her speech. This was still unusual for the patient. Throughout her stay in the emergency department, her symptoms completely resolved. The patient reports no headache, change in vision, focal deficits, numbness, tingling. She only complains of vague chills and feeling cold. She does point to her upper abdomen when she complains of chills. She also complains of slight left knee pain although she does not recall any trauma. She denies any dysuria, urgency. Her caregiver did make note of increased frequency. In the emergency department, she was noted to be afebrile and hemodynamically stable. Labs were significant for a white count of 14,000. AST was elevated in the 130s. Her urinalysis did reveal pyuria, bacteriuria, leukocyte esterase, and nitrites. CT the head was unremarkable. She underwent CTA of the head and neck which showed no significant stenosis. Given the above findings, medicine was consulted for admission. I did discuss goals of care with the patient and she states that she does not want to and would like to be a full code. She also gave me permission to speak with her son regarding her CODE STATUS. I did speak with the patient's son and he states that she is a DNR and has made it clear in the past that she does not want aggressive measures. Her CKs came back elevated at 1000. Given this elevation without a history concerning for rhabdomyolysis, the concern was for a possible cardiac event especially given her history of diaphoresis, nausea. A troponin was then checked and this was elevated at greater than 12,000. An EKG was obtained which shows sinus rhythm with T wave inversions in the inferior leads as well as V3 to V6. There is artifact which does limit the rate but there are no obvious ST elevations. There are slight ST depressions in V4 to V6. The patient had a ready been administered aspirin given the concern for TIA. I discussed these findings with the patient's son and caregiver. Her son, Mauri, is her power of trade mark attorney. He stated that his mother is a DNR and that she has stated in the past she does not want any aggressive measures. We discussed potential treatment options including just medical management alone with aspirin, beta-anthony, heparin and obtaining an echocardiogram. We also discussed transferring her to higher level of care for cardiology evaluation which would likely include angiogram and possible stent placement. He feels that his mom would not want to be transferred. At this time, we have agreed to keep her hospitalized here for medical management and observe her overnight. There is a change in her clinical status then a mauri would potentially consider transferring her but at this time he prefers to hold off. Although initial concern was for TIA, I have low suspicion for stroke given her symptoms have com pletely resolved and may have been explained by a cardiac event. We did discuss that ideally would not anticoagulate the patient if there was concern for stroke given the risk of hemorrhage but given her clinical presentation, I feel that the benefit of anticoagulation outweighs the risk and that there is a low suspicion for infarct. We will start the patient on heparin. We will still obtain an MRI of the brain tomorrow. We will start her on metoprolol 25 mg twice daily. Continue with aspirin daily. We will also give her a loading dose of Plavix and continue her on 75 mg daily. Trend her troponins. - CONSULTS | PROCEDURES Procedures: Head CTA with and without contrast showed no definite night acute process. Neck CTA showed no hemodynamically significant stenosis of the major extracranial arterial circulation. Atherosclerotic disease of the aorta extending into the arch branch vessels and at the carotid bifurcation without flow-limiting stenosis. 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 No regional wall motion abnormality was seen. Right ventricle is normal size and function. Severe increase in left atrial volume index. Right atrium size is normal. There is no evidence of aortic regurgitation or stenosis. There is trace mitral regurgitation. No mitral stenosis. The right ventricular systolic pressure was 38 mmHg. - HOSPITAL COURSE Hospital Course: The patient was placed on a heparin drip and anti-factor Xa levels were monitored until therapeutic. Initial troponin was 12,000. The levels true to 45,000 and then steadily decreased to 14,000. She was placed on metoprolol tartrate 25 mg p.o. twice daily. This was switched to metoprolol succinate 25 mg p.o. daily at time of discharge. She was also maintained on Plavix 75 mg p.o. daily and aspirin 81 mg p.o. daily. She was also put on maximum atorvastatin dose of 80 mg p.o. nightly. The patient did well from a cardiac point of view. On the day of admission and after diagnosis of NSTEMI, a discussion was had with the patient's son Lauro Britton who is also the DURABLE POWER OF NUMERICAL CONTROL MACHINE MACHINIST. He declined any invasive measures or having the patient transferred for coronary angiogram and possible stent. He asked for medical management only. TIA symptoms resolved. On the first night of her hospital stay it is reported that she only slept for about 4 hours. On the second night which was 05/08/2020 the patient became significantly agitated and ransacked her room. She had been given a dose of trazodone 50 mg at night for sleep which was not effective. She was also given a dose of Seroquel and subsequently IV Ativan. She finally calmed down and went to sleep around 530 on 05/09/20 after her son had been called to the hospital. At a subsequent visit later in the day the patient had no recollection of the activities of the previous night. It was reported by her son that she had been on medication for dementia in the past but it was discontinued because it caused significant dizziness. The medication was unspecified The incident of the night was discussed with the patient's son. It was determined that she was not a safe discharge home. It was requested that the patient undergo a [facility] psych consult for possible placement and inpatient psych. However the patient's son Lauro Britton declined and stated that he would have 24/7 caregiver coverage at home. One of the patient's caregivers was at bedside at the time of discussion. The patient was seen by social work and after discussion with the patient's son as well it was determined they had the finances and insurance coverage to fund 24-hr care coverage. Consequently she was discharged home. I called the patient's primary care physician's office at [place] and requested a posthospitalization follow-up with the primary care physician within a week. I also asked for referral to cardiology. - ALLERGIES Allergies/Adverse Reactions: Allergies Allergy/AdvReac Type Severity Reaction Status Date / Time No Known Drug Allergies Allergy Verified 05/07/20 18:23 - MEDICATIONS Home Medications: Ambulatory Orders Medication Instructions Recorded Confirmed Hydrochlorothiazide 12.5 mg PO DAILY 05/08/20 05/08/20 Multivitamin 1 tab PO DAILY 05/08/20 05/08/20 Aspirin [Aspirin EC] 81 mg PO DAILY 30 Days #05/09/20 Atorvastatin [Lipitor] 80 mg PO QPM 30 Days #05/09/20 Clopidogrel [Plavix] 75 mg PO DAILY 30 Days #05/09/20 Metoprolol Succinate [Toprol Xl] 25 mg PO DAILY 30 Days #05/09/20 - PHYSICAL EXAM AT DISCHARGE General Appearance: positive: No acute distress, Alert Eyes Bilateral: positive: PERRL, EOMI ENT: positive: No signs of dehydration Neck: positive: No JVD, Trachea midline Respiratory: positive: Chest non-tender, No respiratory distress, Breath sounds nml Cardiovascular: positive: Regular rate & rhythm, No murmur, No gallop Abdomen: positive: Non-tender, No organomegaly, Nml bowel sounds, No distention Back: positive: Nml inspection Skin: positive: Color nml, No rash, Warm, Dry Extremities: positive: Non-tender, Full ROM, Nml appearance, No pedal edema Neurologic/Psychiatric: positive: CN's nml (2-12), Motor nml, Mood/affect nml, Disoriented to place, Disoriented to time, Other (Disoriented to place, time or reason) - LABS Result Diagrams: 05/09/20 04:15 05/09/20 04:15 - FOLLOW UP Follow Up: With primary care physician and cardiology as scheduled cardiology - TIME SPENT Time Spent in Discharge (Minutes): 35"
--- NOTE | 2020-05-09 14:00 | Discharge Plan ---
Discharge Plan Problem Reviewed?: Yes Disposition: Home, Self Care Condition: Stable Prescriptions: Aspirin [Aspirin EC] 81 mg PO DAILY 30 Days #30 Atorvastatin [Lipitor] 80 mg PO QPM 30 Days #30 Clopidogrel [Plavix] 75 mg PO DAILY 30 Days #30 Metoprolol Succinate [Toprol Xl] 25 mg PO DAILY 30 Days #30 Diet: Cardiac Activity Restrictions: Activity as Tolerated Shower Restrictions: No Driving Restrictions: Yes (Not to operated any motorized vehicle) Weight Bearing: Full Weight Health Concerns: You were admitted on 05/07/2020 with symptoms of slurred/garbled speech and diaphoresis. Initial diagnosis was TIA which is transient ischemic attack for which a work-up was initiated and included CT scan and an MRI of your brain. These were negative for any acute ischemic process. It was noted that your Creatinine kinase was elevated. Further work-up included checking troponin levels which came back elevated at 12 ,000. Trending of troponin it was further elevated with a maximum of 45,000. Over the subsequent day it trended down. This along with your EKG findings indicated that you had an NSTEMI. Discussion with your son Lauro Britton who is also your DURABLE POWER OF SOUND INSTALLATION WORKER. It was pointed out that you would not have wanted any invasive work-up or intervention. He declined transferring you for coronary angiogram and possible stent placement. He was agreeable to medical management. Consequently you were placed on metoprolol succinate 25 mg p.o. daily Plavix 75 mg p.o. daily. Aspirin 81 mg p.o. daily. Atorvastatin 80 mg p.o. nightly. He also underwent a 2D echocardiogram which showed normal ejection fraction 55 to 60%. There was no regional wall motion abnormality seen. There was no evidence of aortic stenosis. There was trace mitral regurgitation Your right ventricular systolic pressure was 38 mmHg. You did well from a cardiac point of view throughout your hospital stay. However on the last night prior to discharge you had a episode of significant agitation consistent with severe dementia. It was proposed that you undergo a geriatric psych consult and possible placement at an inpatient geriatric psych facility. However Lauro stated that he was going to establish 24-hour coverage for caregivers at home. He was also going to be at your house until this was in place. You were evaluated by social services manager and determined to have the means to finance a 24-hour care. Consequently you are being discharged home under the primary care of Lauro Britton your son and DURABLE POWER OF SOUND INSTALLATION WORKER. A call has been placed with your primary care physician to do a referral to cardiology. They have also been asked to schedule a post hospitalization for NSTEMI follow- up visit within a week. The above has been explained to Lauro Britton and your caregiver who is at bedside. They expressed understanding and are agreeable to the plan. Plan of Treatment: You were admitted on 05/07/2020 with symptoms of slurred/garbled speech and diaphoresis. Initial diagnosis was TIA which is transient ischemic attack for which a work-up was initiated and included CT scan and an MRI of your brain. These were negative for any acute ischemic process. It was noted that your Creatinine kinase was elevated. Further work-up included checking troponin levels which came back elevated at 12,000. Trending of troponin it was further elevated with a maximum of 45,000. Over the subsequent day it trended down. This along with your EKG findings indicated that you had an NSTEMI. Discussion with your son Lauro Britton who is also your DURABLE POWER OF SOUND INSTALLATION WORKER. It was pointed out that you would not have wanted any invasive work-up or intervention. He declined transferring you for coronary angiogram and possible stent placement. He was agreeable to medical management. Consequently you were placed on metoprolol succinate 25 mg p.o. daily Plavix 75 mg p.o. daily. Aspirin 81 mg p.o. daily. Atorvastatin 80 mg p.o. nightly. He also underwent a 2D echocardiogram which showed normal ejection fraction 55 to 60%. There was no regional wall motion abnormality seen. There was no evidence of aortic stenosis. There was trace mitral regurgitation Your right ventricular systolic pressure was 38 mmHg. You did well from a cardiac point of view throughout your hospital stay. However on the last night prior to discharge you had a episode of significant agitation consistent with severe dementia. It was proposed that you undergo a geriatric psych consult and possible placement at an inpatient geriatric psych facility. However Lauro stated that he was going to establish 24-hour coverage for caregivers at home. He was also going to be at your house until this was in place. You were evaluated by social services manager and determined to have the means to finance a 24-hour care. Consequently you are being discharged home under the primary care of Lauro Tobi your son and DURABLE POWER OF SOUND INSTALLATION WORKER. A call has been placed with your primary care physician to do a referral to cardiology. They have also been asked to schedule a post hospitalization for NSTEMI follow- up visit within a week. The above has been explained to Lauro Britton and your caregiver who is at bedside. They expressed understanding and are agreeable to the plan. Care Goals: You were admitted on 05/07/2020 with symptoms of slurred/garbled speech and diaphoresis. Initial diagnosis was TIA which is transient ischemic attack for which a work-up was initiated and included CT scan and an MRI of your brain. These were negative for any acute ischemic process. It was noted that your Creatinine kinase was elevated. Further work-up included checking troponin levels which came back elevated at 12,000. Trending of troponin it was further elevated with a maximum of 45,000. Over the subsequent day it trended down. This along with your EKG findings indicated that you had an NSTEMI. Discussion with your son Lauro Britton who is also your DURABLE POWER OF SOUND INSTALLATION WORKER. It was pointed out that you would not have wanted any invasive work-up or intervention. He declined transferring you for coronary angiogram and possible stent placement. He was agreeable to medical management. Consequently you were placed on metoprolol succinate 25 mg p.o. daily Plavix 75 mg p.o. daily. Aspirin 81 mg p.o. daily. Atorvastatin 80 mg p.o. nightly. He also underwent a 2D echocardiogram which showed normal ejection fraction 55 to 60%. There was no regional wall motion abnormality seen. There was no evidence of aortic stenosis. There was trace mitral regurgitation Your right ventricular systolic pressure was 38 mmHg. You did well from a cardiac point of view throughout your hospital stay. However on the last night prior to discharge you had a episode of significant agitation consistent with severe dementia. It was proposed that you undergo a geriatric psych consult and possible placement at an inpatient geriatric psych facility. However Lauro stated that he was going to establish 24-hour coverage for caregivers at home. He was also going to be at your house until this was in place. You were evaluated by social services manager and determined to have the means to finance a 24-hour care. Consequently you are being discharged home under the primary care of Lauro glies son and DURABLE POWER OF SOUND INSTALLATION WORKER. A call has been placed with your primary care physician to do a referral to cardiology. They have also been asked to schedule a post hospitalization for NSTEMI follow- up visit within a week. The above has been explained to Lauro Britton and your caregiver who is at bedside. They expressed understanding and are agreeable to the plan. No Smoking: If you smoke, Please STOP! Call for help.
== END 2020-05-09 14:59 | disposition home or self-care (01) | DRG 281 ==
LOC: EDUNIT# → EDBD → ED 18:13 → MS2 20:25 → UNDOADMOB 20:25 → OBSVTOIN 21:46 → MS2 21:46
PROVIDERS: ADMIT Internal Medicine; ATTEND Internal Medicine
DX: I21.4 Non-ST elevation (NSTEMI) myocardial infarction (principal); G45.9 Transient cerebral ischemic attack, unspecified; R29.702 NIHSS score 2; Z20.822 Contact with and (suspected) exposure to COVID-19; I10 Essential (primary) hypertension; F03.90 Unspecified dementia, unspecified severity, without behavioral disturbance, psychotic disturbance, mood disturbance, and anxiety; R82.71 Bacteriuria; M25.562 Pain in left knee; Z66 Do not resuscitate; Z79.899 Other long term (current) drug therapy
CPT/HCPCS: 36415; 70450; 70496; 70498; 70551; 73560; 80048; 80053; 80061; 81001; 82550; 82607; 83036; 83721; 83735; 84439; 84443; 84484; 85025; 85520; 85610; 85730; 87086; 87181; 87631; 93005; 93306; 99285; A9270; J2060; Q9967; 0202U; 82272